=== PATIENT | male | born 1965 | race Hispanic/Latino ===

== ENCOUNTER 2024-11-18 16:32 | Emergency (ER) | payer OTHER ==
[~2024-11-18] VITALS: Ht 175.3 cm; Wt 56.7 kg
[2024-11-18 16:45] VITALS: PULSE 113; RESP 16; TEMP 97; O2SAT 100
[2024-11-18] MEDS ORDERED: FLOMAX0.4 MG PO (17:03)
[2024-11-18 17:53] LABS: CLARITY,URINE CLEAR (CLEAR); COLOR,URINE YELLOW (YELLOW); GLUCOSE, URINE NEGATIVE (NEGATIVE); KETONES,URINE NEGATIVE (NEGATIVE); LEUKOCYTE ESTERASE ,URINE NEGATIVE (NEGATIVE); NITRITE,URINE NEGATIVE (NEGATIVE); PH,URINE 7 (5 - 7); PROTEIN,URINE DIPSTICK NEGATIVE (NEGATIVE)
[2024-11-18 17:54] LABS: BILIRUBIN,URINE NEGATIVE (NEGATIVE); URINE UROBILINOGEN 1 mg/dL (0.2 - 1)
[2024-11-18 17:57] LABS: BACTERIA,URINE FEW /HPF; EPITHELIAL CELLS,URINE RARE /LPF; RBC,URINE 0-5 /HPF (0-5); WBC,URINE (MAN) 0-5 /HPF (0-5)
== END 2024-11-18 19:00 | disposition home or self-care (01) ==
LOC: ER 16:35
DX: R33.9 Retention of urine, unspecified (principal); Z85.72 Personal history of non-Hodgkin lymphomas
CPT/HCPCS: 51700; 81001; 99283